=== PATIENT | female | born 1955 | race Asian ===

== ENCOUNTER 2023-03-09 18:40 | Outpatient (CLI) | payer MEDICARE, OTHER | END 2023-03-09 23:59 | disposition short-term general hospital (02) | LOC: EMS 18:40 | DX: R50.9 Fever, unspecified (principal); M79.652 Pain in left thigh; R53.1 Weakness; R41.0 Disorientation, unspecified; R00.0 Tachycardia, unspecified | CPT/HCPCS: A0425; A0427; A0888 ==

== ENCOUNTER 2023-12-04 13:23 | Outpatient (CLI) | payer MEDICARE, OTHER | END 2023-12-04 23:59 | disposition short-term general hospital (02) | LOC: EMS 13:23 | DX: R53.1 Weakness (principal); R19.7 Diarrhea, unspecified; R53.81 Other malaise | CPT/HCPCS: A0425; A0427; A0888 ==